=== PATIENT | female | born 1980 | race Caucasian/White ===

== ENCOUNTER 2018-11-27 20:51 | Emergency (ER) | payer MEDICAID ==
[~2018-11-27] VITALS: Ht 165.1 cm; Wt 63.0 kg
[2018-11-27 20:55] VITALS: BP 140/78
--- NOTE | 2018-11-27 20:55 | NUR ---
TO BED # 09 AMBULATORY
--- NOTE | 2018-11-27 20:58 | NUR ---
38 YO FEMALE BIB SELF COMES TO ER FOR C/O PAIN UPON URINATION. PT STATES IT IS A BURNING SENSATION AND HAS BEEN GOING ON FOR X3 DAYS. PT STATES IT IS 3/10 PAIN WHEN SHE URINATES. PT DENIES FEVER/CHILLS. LUNGS CLEAR EVEN UNLABORED. ABD SOFT NON DISTENDED. BED LOCKED IN LOWEST POSITION. WILL CONTINUE TO OBSERVE. DENIES MED HX DENIES ALLERGIES LMP: 11/12/18
--- NOTE | 2018-11-27 22:49 | NUR ---
Dr. Hanson evaluating patient at bedside.
[2018-11-27 22:59] VITALS: BP 132/80
--- NOTE | 2018-11-27 22:59 | NUR ---
Patient discharged with v/s stable. Written and verbal after care instructions given and explained. Patient alert, oriented and verbalized understanding of instructions. Ambulatory with steady gait. All questions addressed prior to discharge. ID band removed. Patient advised to follow up with PMD. Rx of Pyridium 200mg and Cipro 500mg given. Patient educated on indication of medication including possible reaction and side effects. Opportunity to ask questions provided and answered.
== END 2018-11-27 22:59 | disposition home or self-care (01) ==
LOC: MED 20:51
DX: N39.0 Urinary tract infection, site not specified (principal)
CPT/HCPCS: 81002; 81025; 99283

== ENCOUNTER 2019-01-09 20:58 | Emergency (ER) | payer MEDICAID ==
[~2019-01-09] VITALS: Ht 165.1 cm; Wt 62.6 kg
[2019-01-09 21:20] VITALS: BP 110/75
--- NOTE | 2019-01-09 21:20 | NUR ---
TO BED # 04 AMBULATORY
[2019-01-09 21:27] VITALS: BP 110/75
--- NOTE | 2019-01-09 21:27 | NUR ---
38 Y/O F PRESENTED TO ED WITH C/O LOWER ABDOMINAL PAIN AND DYSURIA X 4 DAYS. 4/10 PAIN. PER PT "I HAD A UTI A MONTH AGO AND THIS FEELS THE SAME." C/O BLOATING. DENIES HEMATURIA OR FLANK PAIN. ERMD NOTIFIED. WILL CONTINUE TO MONITOR.
--- NOTE | 2019-01-09 21:31 | NUR ---
Dr. Aguilar examining patient.
--- NOTE | 2019-01-09 22:10 | NUR ---
Patient discharged with v/s stable. Written and verbal after care instructions given and explained. Patient alert, oriented and verbalized understanding of instructions. Ambulatory with steady gait. All questions addressed prior to discharge. ID band removed. Patient advised to follow up with PMD. Rx of Pyridum and macrobid given. Patient educated on indication of medication including possible reaction and side effects. Opportunity to ask questions provided and answered.
== END 2019-01-09 22:10 | disposition home or self-care (01) ==
LOC: MED 20:58
DX: N39.0 Urinary tract infection, site not specified (principal); R42 Dizziness and giddiness
CPT/HCPCS: 81002; 81025; 99283

== ENCOUNTER 2019-01-26 21:48 | Emergency (ER) | payer MEDICAID ==
[~2019-01-26] VITALS: Ht 165.1 cm; Wt 63.5 kg
[2019-01-26 21:55] VITALS: BP 110/80
--- NOTE | 2019-01-26 22:00 | NUR ---
38 Y/O FEMALE PRESENTS TO ED, C/O N/V AND PAIN URINATING. PT STATES SHE HAS BEEN HAVING N/V EPISODES FOR THE PAST 3 DAYS, PT ABLE TO TOLERATE ADEQUATE FLUID AND FOOD. PT IS 6 WEEKS , 3RD , 2 CHILDREN. PT STATES PAIN URINATING STARTED THIS MORNING, BURNING SENSATION 7/10. URINE HAS NO FOUL ODOR. PT VSS. DR WEBB AWARE. WILL CONTINUE TO MONITOR.
--- NOTE | 2019-01-26 22:39 | NUR ---
Dr. Humphreys examining patient.
[2019-01-26] MEDS ORDERED: ONDANSETRON 4 MG ODT PO ONE (22:40)
[2019-01-26 22:46] LABS: APPEARANCE,URINE HAZY (CLEAR)
[2019-01-26 22:47] LABS: COLOR,URINE ORANGE (YELLOW)
[2019-01-26 22:49] LABS: RBC,URINE NONE SEEN /HPF (0-5)
[2019-01-26] MEDS ORDERED: NITROFURANTOIN 100 MG CAP PO ONE (23:00)
[2019-01-26 23:58] VITALS: BP 110/80
--- NOTE | 2019-01-26 23:58 | NUR ---
PT DISCHARGE WITH PAPERWORK. RX FOR ZOFRAN AND MACROBID. EDUCATED PT REGARDING MEDICATIONS AND SIDE EFFECTS. EDUCATED PT REGARDING DISCHARGE DIAGNOSIS. PT VERBALIZED UNDERSTANDING OF TEACHING. TOLD PT TO FOLLOW UP WITH PCP AND WHEN TO RETURN TO ED. PT VSS. ALL QUESTIONS ANSWERED.
== END 2019-01-26 23:58 | disposition home or self-care (01) ==
LOC: MED 21:48
DX: O23.41 Unspecified infection of urinary tract in pregnancy, first trimester (principal); O21.8 Other vomiting complicating pregnancy; Z3A.01 Less than 8 weeks gestation of pregnancy
CPT/HCPCS: 81001; 81025; 87086; 99283; Q0162